=== PATIENT | female | born 1965 ===

== ENCOUNTER 2021-11-21 03:28 | Emergency (ER) | payer SELFPAY ==
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
[2021-11-21 06:52] VITALS: BP 132/75
== END 2021-11-21 06:30 ==
LOC: ED 03:28
DX: S16.1XXA Strain of muscle, fascia and tendon at neck level, initial encounter (principal); S63.592A Other specified sprain of left wrist, initial encounter; S63.591A Other specified sprain of right wrist, initial encounter; S09.90XA Unspecified injury of head, initial encounter; S80.02XA Contusion of left knee, initial encounter; F17.200 Nicotine dependence, unspecified, uncomplicated; Z88.0 Allergy status to penicillin; Z72.89 Other problems related to lifestyle; Z98.890 Other specified postprocedural states; V87.7XXA Person injured in collision between other specified motor vehicles (traffic), initial encounter; Y93.89 Activity, other specified; Y92.488 Other paved roadways as the place of occurrence of the external cause; Y99.8 Other external cause status
CPT/HCPCS: 70450; 72072; 72125; 99284